=== PATIENT | male | born 1955 | race Caucasian/White ===

== ENCOUNTER → 2018-12-24 | Outpatient (CLI) | payer BC ==
[~2018-12-24] VITALS: Ht 198.1 cm; Wt 117.9 kg
[~2018-12-24] MED LIST: ACYCLOVIR 400400 MG PO; CHLORTHALIDONE25 MG PO; CRESTOR40 MG PO; GLUCOPHAGE XR500 MG PO; JARDIANCE10 MG PO; LEVEMIR SUBQ; LISINOPRIL5 MG PO; NOVOLOG100 UNIT/1 SUBQ; RYTHMOL SR225 MG PO; TOPROL XL25 MG PO; VIAGRA100 MG PO; XARELTO20 MG PO
[2018-12-24 07:43] VITALS: BP 130/86
--- NOTE | 2018-12-24 09:06 | TEE ---
[facility] [address] [place] [address] TRANSESOPHAGEAL ECHOCARDIOGRAM Name: TRACY GREGORY Room #: [facility]#: [id number] Admission: 12/24/18 Attend Phys: Seferino Mantilla, Discharge: Date of : 55 Date of Service: 12/24/18905 Report #: [id number] THIS REPORT FOR: //name// APPROVED REPORT Study performed: 12/24/2018 07:57:59 EXAM: Transesophageal Echocardiogram/Doppler with Cardioversion Patient Location: Out-Patient Status: routine BSA: 2.52 HR: 106 bpm BP: 124/83 mmHg Rhythm: Atrial Fibrillation Other Information Study Quality: Adequate Indications Atrial Fibrillation Cardioversion Procedure After obtaining informed consent, patient underwent transesophageal echo in the [employer]. Type of Sedation : Conscious Sedation Sedation was administered by Thais Oliva RN. Sedation was achieved intravenously with: Versed (4) Fentanyl (50) Transesophageal probe was inserted and advanced into esophagus without difficulty by Seferino Mantilla MD. Echo enhancement indication: R/O Septal defect. The RICHMOND was performed without complications. Synchronized Cardioversion attempted: Successful Synchronized Cardioversion acheived with 100, 200 Joules after 2 attempt(s). Rhythm following Synchronized Cardioversion: Normal Sinus Rhythm Throughout the procedure, the blood pressure, pulse oximetry, cardiac rhythm, and rate were monitored. The patient tolerated the procedure without adverse effects. Recovery from conscious sedation was uneventful and vital signs were stable. Left Ventricle [facility] [address] [place] [place] [address] TRANSESOPHAGEAL ECHOCARDIOGRAM Name: TRACY GREGORY Room #: [facility]#: [id number] Admission: 12/24/18 Attend Phys: Seferino Mantilla, Discharge: Date of : 55 Date of Service: 12/24/18 0906 Report #: [id number] The left ventricle is normal size. There is normal LV segmental wall motion. There is normal left ventricular wall thickness. Left ventricular systolic function is normal. LVEF is 55%. Right Ventricle The right ventricle is normal size. The right ventricular systolic function is normal. Atria Left atrium is mildly dilated. No thrombus is visualized in the left atrium or appendage. No shunting noted by contrast bubble injection. Right atrium is mildly dilated. Aortic Valve The aortic valve is normal in structure. No aortic regurgitation is present. There is no aortic valvular stenosis. Mitral Valve The mitral valve is normal in structure. Trace mitral regurgitation. Tricuspid Valve The tricuspid valve is normal in structure. There is no tricuspid valve regurgitation noted. Pulmonic Valve The pulmonary valve is normal in structure. There is no pulmonic valvular regurgitation. Great Vessels The aortic root is normal in size. The ascending aorta is normal in size. IVC is normal in size and collapses >50% with inspiration. Pericardium There is no pericardial effusion. <Conclusion> Left ventricular systolic function is normal. There is normal LV segmental wall motion. LVEF is 55%. Both atria are mildly dilated. No shunting by contrast bubble injection No thrombus is visualized in the left atrium or appendage. The aortic valve is normal in structure. No aortic regurgitation or stenosis [facility] [address] [place] [address] TRANSESOPHAGEAL ECHOCARDIOGRAM Name: TRACY GREGORY Room #: [facility]#: [id number] Admission: 12/24/18 Attend Phys: Seferino Mantilla, Discharge: Date of : 55 Date of Service: 12/24/18905 Report #: [id number] The mitral valve is normal in structure. Trace mitral regurgitation. The ascending aorta is normal in size. There is no pericardial effusion. Successful cardioversion of atrial flutter to sinus rhythm following 2 biphasic synchronous joules shocks <ELECTRONICALLY SIGNED> By: Seferino Mantilla MD, FACC 12/24/18905 5 5 Seferino Mantilla MD, FACC /INF
--- NOTE | 2018-12-24 09:50 | EKG ---
[place] [address] [facility] [place] [address] ELECTROCARDIOGRAM REPORT Name: TRACY GREGORY Room #: [facility]#: [id number] Admission: 12/24/18 Attend Phys: Seferino Mantilla MD, Discharge: Date of : 55 Report #: [id number] THIS REPORT FOR: //name// [facility] Test Date: 2018-12-24 Test Time: 08:43:29 Pat Name: TRACY GREGORY Department: Room: Gender: M [employer]: [facility] : 1955 Requested By: Seferino Mantilla Order Number: [id number] MD: Seferino Mantilla Measurements Intervals [place] Rate: 67 P: 48 OK: 172 QRS: -48 QRSD: 161 T: -9 QT: 405 QTc: 428 Interpretive Statements Sinus rhythm Atrial premature complex RBBB and LAFB No previous ECG available for comparison Electronically Signed On 12-24-2018 9:50:24 CDT by Seferino Mantilla [email or web address] <ELECTRONICALLY SIGNED> By: Seferino Mantilla MD, [facility] 12/24/18 0950 [id number] Seferino Mantilla MD, FACC /EPI
--- NOTE | 2018-12-24 11:42 | NUR ---
PT HOME WITH AND DAUGHTER POST RICHMOND/CV. SUCCESSFUL TO NSR. VSS. UP TO BATH ROOM WITH STEADY GAIT. PLEASANT AFFECT. NO C/O. SIPS WATER WITH NO C/O. ALERT AND ORIENTED X4. SL DC'D. VOICES SATISFACTION OF PROCEDURE.
== END | disposition home or self-care (01) ==
LOC: CATH 06:46
DX: E11.9 Type 2 diabetes mellitus without complications (principal); I34.0 Nonrheumatic mitral (valve) insufficiency; I48.91 Unspecified atrial fibrillation; I10 Essential (primary) hypertension; E78.5 Hyperlipidemia, unspecified; E66.09 Other obesity due to excess calories; Z79.899 Other long term (current) drug therapy; Z82.49 Family history of ischemic heart disease and other diseases of the circulatory system; Z79.4 Long term (current) use of insulin; Z98.890 Other specified postprocedural states; Z87.891 Personal history of nicotine dependence; Z79.01 Long term (current) use of anticoagulants; Z87.19 Personal history of other diseases of the digestive system

== ENCOUNTER → 2019-04-08 | Outpatient (CLI) | payer BC ==
[~2019-04-08] MED LIST changes: +EFFER-K 10 MEQ10 ME1 PO
[2019-04-08 07:59] LABS: HEMATOCRIT 49.7 % (42.0-52.0); HEMOGLOBIN 16.6 gm/dL (14.0-18.0); MCH 29.3 pg (26.0-34.0); MCHC 33.4 g/dL (28.0-37.0); MCV 87.7 fL (80.0-100.0); RBC 5.66 mil/uL (4.50-6.00); RDW 15.1 % (10.5-14.5)
[2019-04-08 08:14] LABS: APTT 32.5 Seconds (24.5-32.8); INR 1.1; PROTIME 11.7 Seconds (9.3-11.4)
[2019-04-08 08:15] LABS: ALBUMIN 4.2 g/dL (3.4-5.0); CALCIUM 10.5 mg/dL (8.5-10.1); POTASSIUM 4.2 mmol/L (3.5-5.1); TOTAL BILIRUBIN 0.5 mg/dL (<0.1-1.0); TOTAL PROTEIN 7.2 g/dL (6.4-8.2)
== END ==
LOC: CAT 07:34
PROVIDERS: Internal Medicine Cardiovascular Disease
DX: Z01.818 Encounter for other preprocedural examination (principal); I48.91 Unspecified atrial fibrillation; K44.9 Diaphragmatic hernia without obstruction or gangrene; E04.2 Nontoxic multinodular goiter; M47.814 Spondylosis without myelopathy or radiculopathy, thoracic region; I25.10 Atherosclerotic heart disease of native coronary artery without angina pectoris

== ENCOUNTER 2019-04-11 06:36 | Observation (INO) | payer BC ==
[~2019-04-11] VITALS: Ht 195.6 cm; Wt 115.7 kg
--- NOTE | ~2019-04-11 | P ---
[facility] [place] [address] PROCEDURE REPORT Name: COLTTRACY Carlos Room #: 219-P [facility].#: [id number] Admission: 04/11/19 Attend Phys: Sammy Delgado MD Discharge: Date of : 55 Report #: [id number] THIS REPORT FOR: //name// CC: SHEBA Delgado ATRIAL FIBRILLATION ABLATION PREOPERATIVE DIAGNOSIS: Atrial fibrillation. POSTOPERATIVE DIAGNOSIS: Atrial fibrillation. PROCEDURES PERFORMED: 1. Atrial fibrillation ablation, CPT code 10845. 2. 3D mapping, CPT code 78157. 3. Intracardiac echo, CPT code 05958. 4. Second pathway ablation, CPT code 88936. HISTORY: The patient is a 63-year-old with a history of hypertension, diabetes, and recurrent atrial fibrillation and atrial flutter, here for ablation. ANESTHESIA: The patient underwent general anesthesia with no anesthesia related complications. DESCRIPTION OF PROCEDURE: The patient underwent informed consent. We discussed the details of the procedure including the risks, which include, but not limited to bleeding, vascular damage, cardiac perforation as well as stroke and NH. He understood these risks and is willing to proceed. The patient was brought to the EP laboratory in a fasting and sedated state and prepped and draped in a sterile fashion. Next, I obtained access to the right and left femoral veins placing two 8-Malay short sheaths in the right femoral vein and a 9 and 7-Malay short sheath in the left femoral vein. Eventually, I did exchange with an 8-Malay short sheath in the right femoral vein for another 9-Malay short sheath. Under fluoroscopy, I placed a Decapolar catheter into the coronary sinus. Of note, the patient had very rotated heart. I was able to get into the coronary sinus and fluoroscopically, it appeared that the CS was quite anterior, but this was likely due to his very rotated heart. I had difficulties keeping the Decapolar catheter in the CS, but when I did the atrial flutter ablation, I was able to finally get into this vessel using intracardiac ultrasound to guide me. I did not place the ice catheter into the right atrium. His images were unusual. His aorta appeared to be more superior than his atria and therefore, my usual pictures appeared to be a quite rotated. The patient was systemically heparinized and a transseptal was performed. He did have a thick interatrial septum. I attempted to advance my SL1 sheath and I could not into the left atrium. Therefore, I exchanged for the cryo sheath and this would not advance either. My transseptal was quite anterior and it was hard to get my [facility] [address] [place] [address] PROCEDURE REPORT Name: TRACY GREGORY Room #: 219-P [facility] M.R.#: [id number] Admission: 04/11/19 Attend Phys: Sammy Delgado MD Discharge: Date of : 55 Report #: [id number] wire to sit into the left superior pulmonary vein. I think it was likely wrapped around in the left atrium and sometimes in the left atrial appendage. This made advancing the cryo sheath somewhat difficult. Therefore, I did perform balloon septoplasty of the interatrial septum and I was able to easily advance the cryo sheath into the left atrium. Once in the left atrium, the ablation was straightforward. The left superior pulmonary vein underwent a 220 second freeze followed by a 3-minute freeze. The vein isolated within 30 seconds of the first freeze. I then turned my attention to the left inferior pulmonary vein. I performed two 4-minute freezes and the vein isolated during the first freeze. There was an initial electrogram that isolated within 80 seconds and there was another electrogram that isolated within 135 seconds. After these 2 freezes, this vein appeared isolated. I then turned my attention to the right superior pulmonary vein. I performed a 165 second freeze followed by a 4-minute freeze. It came off early as attempts were getting cold during the first freeze. The vein did isolate during the first freeze at 100 seconds. I then turned my attention to the right inferior pulmonary vein. I performed two 4-minute freezes and this vein did isolate during the first freeze at 150 seconds. I then decided to perform a voltage map of the left atrium using a Lasso catheter, which I had done prior to initial ablation. This showed that all veins were isolated, but there was an area of reconnection in the left inferior pulmonary vein at the inferior aspect of this vessel. Therefore, I performed an inferior freeze of 4 minutes' duration, which did not result in isolation and then I performed a second freeze of 4 minutes' duration where I pulled down and clocked the sheath and this resulted in isolation within 11 seconds. Therefore, repeat voltage map was created and we had created a wide circumferential ablation of all the pulmonary veins. Of note, while I was attempting to enter the right superior pulmonary vein. The patient did have atrial flutter that appeared to be cavotricuspid isthmus dependent flutter in nature. He does have documented atrial flutter in the past. As such, we decided to proceed with atrial flutter ablation. ATRIAL FLUTTER ABLATION: After pulling my cryo sheath into the right atrium, I removed the cryoballoon and placed the ice catheter into the cryo sheath and I do align using CartoSound of the cavotricuspid isthmus. Preablation pacing was performed and the transisthmus conduction time was 90 either pacing medial or lateral to the line. Next, ablation was performed using a SmartTouch ThermoCool ablation catheter via a ramp sheath. The patient did have a long isthmus. Extensive ablation was performed and post-ablation, the transisthmus conduction time was 170 milliseconds, which was consistent with bidirectional block. As such, the procedure was concluded. Post-ablation, the patient remained in sinus rhythm. Using intracardiac ultrasound, I verified there was no pericardial effusion. The patient received systemic protamine and once ACT was within acceptable range, catheters and sheaths were pulled and hemostasis was obtained. The patient awoke neurologically and hemodynamically intact. No complications and no significant bleeding. [facility] [address] [place] [address] PROCEDURE REPORT Name: COLTTRACY Carlos Room #: 219-P [facility].#: [id number] Admission: 04/11/19 Attend Phys: Sammy Delgado MD Discharge: Date of : 55 Report #: [id number] CONCLUSIONS: 1. Successful AFib ablation with isolation of the pulmonary veins. 2. Successful atrial flutter ablation with bidirectional block. By: 1406 0035 Sammy Delgado MD /nt
[~2019-04-11 06:36] MED LIST changes: -EFFER-K 10 MEQ10 ME1 PO
[2019-04-11 06:53] VITALS: BP 139/66
[2019-04-11 08:08] LABS: ABSOLUTE NEUTROPHILS 3.7 thou/uL (1.4-8.2); BASOPHILS 1.2 % (0.0-2.0); EOSINOPHILS 1.9 % (0.0-3.0); HEMATOCRIT 46.6 % (42.0-52.0); HEMOGLOBIN 15.6 gm/dL (14.0-18.0); LYMPHOCYTES 18.8 % (24.0-44.0); MCH 29.1 pg (26.0-34.0); MCHC 33.4 g/dL (28.0-37.0); MCV 87.1 fL (80.0-100.0); MONOCYTES 8.8 % (1.0-8.0); PLATELET COUNT 153 thou/uL (150-400); POLYS 69.3 % (36.0-66.0); RBC 5.35 mil/uL (4.50-6.00); RDW 14.4 % (10.5-14.5); WBC 5.3 thou/uL (4.0-11.0)
[2019-04-11 08:17] LABS: CALCIUM 9.8 mg/dL (8.5-10.1); POTASSIUM 3.8 mmol/L (3.5-5.1)
[2019-04-11 08:22] LABS: APTT 28.2 Seconds (24.5-32.8); PROTIME 10.7 Seconds (9.3-11.4)
[2019-04-11 13:45] VITALS: BP 145/62
--- NOTE | 2019-04-11 14:29 | NUR ---
PT ARRIVED TO UNIT AT 1335 FROM LOOM STOP CHECKER. PT HAD AFIB ABLATION. PT IS CURRENTLY IN SR RATE 82. PT HAS L AND R GROIN SITES. BOTH ARE COVERED WITH GAUZE AND TRANSPARENT DRESSING. BOTH SITES ARE SOFT TO TOUCH, NO HEMATOMA PRESENT AT THIS TIME. PT INSTRUCTED THAT HE IS ON BED FROM UNTIL 193. PT IS C/O BACK PAIN. PT GIVEN PO PAIN MEDICATION. AND DAUGHTER AT BEDSIDE.
[2019-04-11 16:00] VITALS: BP 142/68
[2019-04-11] MEDS ORDERED: EFFER-K 10 MEQ10 ME1 PO (17:52)
[2019-04-11 21:12] VITALS: BP 137/56
--- NOTE | 2019-04-12 04:53 | NUR ---
ASSESSMENT: PT REMAIN ALERT AND ORIENT TIMES FOUR. UP AD SHANELLE IN THE ROOM. BARNES DC'D, PT HAS URINATED SINCE. CHERRIE GROIN SITES C/D/I. VSS, SR-ST WITH OCCASIONAL FIRST DEGREE. PT ANTICIPATING BEING DC'D TODAY. GOOD PROGRESS TOWARDS DC GOALS, WILL CONTINUE TO MONITOR.
[2019-04-12 06:35] VITALS: BP 141/55
[2019-04-12 07:45] VITALS: BP 141/58
[2019-04-12 09:48] VITALS: BP 141/58
--- NOTE | 2019-04-12 11:22 | NUR ---
pt assessed, alert and oriented x 4, verbalizes desire to go home. reviewed all meds and DC instructions, pt verbalizes information about ablation and why it was done. dr and metal hardener in to see pt around 9am. pt verbalized understanding of all meds and dc instructions. IVx2 and tele removed. pt was pushed to ER entrance via wheelchair where he got into the car with his . he took all belongings with him.
== END 2019-04-12 11:15 | disposition home or self-care (01) ==
LOC: CATH 06:36 → 2N 13:48 → CATH 14:18 → 2N 04-12 11:15
PROVIDERS: ADMIT Internal Medicine Cardiovascular Disease
DX: I48.0 Paroxysmal atrial fibrillation (principal); I10 Essential (primary) hypertension; E11.9 Type 2 diabetes mellitus without complications; D68.59 Other primary thrombophilia; I48.92 Unspecified atrial flutter; E78.5 Hyperlipidemia, unspecified; Z23 Encounter for immunization
CPT/HCPCS: 62110; 62900; 65020; 65040; 70005

== ENCOUNTER → 2020-11-15 | Outpatient (CLI) | payer OTHER ==
[~2020-11-15] MED LIST changes: +EFFER-K 10 MEQ10 ME1 PO
== END ==
LOC: SJCVC 13:58
PROVIDERS: ATTEND Internal Medicine
DX: R94.31 Abnormal electrocardiogram [ECG] [EKG] (principal); I45.2 Bifascicular block; I48.0 Paroxysmal atrial fibrillation; I45.10 Unspecified right bundle-branch block; I10 Essential (primary) hypertension; E78.5 Hyperlipidemia, unspecified; E11.9 Type 2 diabetes mellitus without complications; N40.0 Benign prostatic hyperplasia without lower urinary tract symptoms; B00.2 Herpesviral gingivostomatitis and pharyngotonsillitis; E66.3 Overweight; I25.2 Old myocardial infarction; Z79.899 Other long term (current) drug therapy; Z87.891 Personal history of nicotine dependence; Z72.89 Other problems related to lifestyle

== ENCOUNTER → 2020-11-17 | Outpatient (CLI) | payer OTHER | LOC: SJCVCIMAG 09:09 | PROVIDERS: ATTEND Internal Medicine Cardiovascular Disease | DX: I08.3 Combined rheumatic disorders of mitral, aortic and tricuspid valves (principal); I11.9 Hypertensive heart disease without heart failure; E11.9 Type 2 diabetes mellitus without complications; R94.31 Abnormal electrocardiogram [ECG] [EKG]; I48.0 Paroxysmal atrial fibrillation; I45.10 Unspecified right bundle-branch block; E78.5 Hyperlipidemia, unspecified; R42 Dizziness and giddiness; R06.00 Dyspnea, unspecified; Z79.899 Other long term (current) drug therapy ==

== ENCOUNTER → 2020-11-25 | Outpatient (CLI) | payer OTHER ==
[~2020-11-25] VITALS: Ht 195.6 cm; Wt 110.0 kg
[2020-11-25 07:52] VITALS: BP 108/72
[2020-11-25 07:56] LABS: HEMATOCRIT 52.6 % (42.0-52.0); HEMOGLOBIN 17.7 gm/dL (14.0-18.0); MCH 29.9 pg (26.0-34.0); MCHC 33.7 g/dL (28.0-37.0); MCV 88.8 fL (80.0-100.0); RBC 5.92 mil/uL (4.50-6.00); RDW 14.9 % (10.5-14.5)
[2020-11-25 08:06] LABS: POTASSIUM 3.9 mmol/L (3.5-5.1)
[2020-11-25 08:11] LABS: INR 1.14; PROTIME 12.4 Seconds (10.5-12.1)
--- NOTE | 2020-11-26 13:27 | P ---
[facility] [place] [address] PROCEDURE REPORT Name: GREGORYTRACY Melgar Room #: [facility] [id number] Admission: 11/25/20 Attend Phys: Sammy Delgado MD Discharge: Date of : 55 Report #: [id number] THIS REPORT FOR: cc: SHEBA CALDERA APRN, ANNA APRN Couchonnal, Luis F. MD ~ DOC #: [id number] Sammy Delgado MD PROCEDURE: Cardioversion. PREOPERATIVE DIAGNOSIS: Atrial fibrillation. POSTOPERATIVE DIAGNOSIS: Atrial fibrillation. DESCRIPTION OF PROCEDURE: The patient underwent informed consent. He was prepped in a standard fashion. Patches placed in the AP position. He was sedated by anesthesiology service and then underwent a 200 joule synchronized cardioversion with buddhism of sinus rhythm. There were no procedure related complications. CONCLUSION: Successful DC cardioversion with buddhism of sinus rhythm. Sammy Delgado MD LFC/JT <ELECTRONICALLY SIGNED> By: Sammy Delgado MD 11/26/20 1327 1126 2216 Sammy Delgado MD /nt
== END | disposition home or self-care (01) ==
LOC: CATH 06:31
PROVIDERS: ATTEND Internal Medicine Cardiovascular Disease
DX: I48.91 Unspecified atrial fibrillation (principal); I10 Essential (primary) hypertension; E11.9 Type 2 diabetes mellitus without complications; E78.5 Hyperlipidemia, unspecified; E66.9 Obesity, unspecified; Z98.890 Other specified postprocedural states; Z79.899 Other long term (current) drug therapy; Z79.01 Long term (current) use of anticoagulants; Z79.4 Long term (current) use of insulin; Z87.442 Personal history of urinary calculi; Z87.891 Personal history of nicotine dependence
CPT/HCPCS: 62110; 62900

== ENCOUNTER → 2020-12-30 | Outpatient (CLI) | payer OTHER | LOC: SJCVC 14:29 | PROVIDERS: ATTEND Internal Medicine Cardiovascular Disease | DX: R94.31 Abnormal electrocardiogram [ECG] [EKG] (principal); I45.10 Unspecified right bundle-branch block; I48.0 Paroxysmal atrial fibrillation; E11.9 Type 2 diabetes mellitus without complications; I10 Essential (primary) hypertension; E66.9 Obesity, unspecified; E78.5 Hyperlipidemia, unspecified; Z98.890 Other specified postprocedural states; Z79.4 Long term (current) use of insulin; Z79.899 Other long term (current) drug therapy; Z87.891 Personal history of nicotine dependence; Z82.49 Family history of ischemic heart disease and other diseases of the circulatory system ==

== ENCOUNTER → 2021-05-25 | Outpatient (CLI) | payer OTHER | LOC: SJCVC 14:03 | PROVIDERS: ATTEND Internal Medicine Cardiovascular Disease | DX: R94.31 Abnormal electrocardiogram [ECG] [EKG] (principal); I45.10 Unspecified right bundle-branch block; I48.0 Paroxysmal atrial fibrillation; I48.92 Unspecified atrial flutter; I47.1 Supraventricular tachycardia; E11.9 Type 2 diabetes mellitus without complications; E78.5 Hyperlipidemia, unspecified; I10 Essential (primary) hypertension; Z79.4 Long term (current) use of insulin; Z79.899 Other long term (current) drug therapy; Z87.891 Personal history of nicotine dependence; Z72.89 Other problems related to lifestyle; Z82.49 Family history of ischemic heart disease and other diseases of the circulatory system ==

== ENCOUNTER 2021-06-20 06:30 | Observation (INO) | payer OTHER ==
[~2021-06-20] VITALS: Ht 195.6 cm; Wt 110.3 kg
--- NOTE | ~2021-06-20 | P ---
[facility] [place] [address] PROCEDURE REPORT Name: TRACY GREGORY Room #: 209-P [facility] Julian Cochran#: [id number] Admission: 06/20/21 Attend Phys: Sammy Delgado MD Discharge: 06/21/21 Date of : 55 Report #: [id number] THIS REPORT FOR: cc: SHEBA CALDERA APRN, SHEBA Delgado,Sammy Crook MD ~ DATE OF SERVICE: 06/20/2021 PREOPERATIVE DIAGNOSIS: Atrial fibrillation. POSTOPERATIVE DIAGNOSES: 1. Atrial fibrillation. 2. Typical AV karli reentrant tachycardia. PROCEDURES PERFORMED: 1. Atrial fibrillation ablation, CPT code 53254. 2. Program stimulation pacing after IV drug infusion, CPT code 62478. 3. Focal ablation, CPT code 60243. 4. Second pathway ablation, CPT code 31703. DESCRIPTION OF PROCEDURE: The patient was brought to the EP lab in a fasting and sedated state and prepped and draped in a standard fashion. In the right femoral vein, I placed an 8, 9 and 7-Swedish short sheath using the modified Seldinger technique. Later on in the case, I placed a 6-Swedish short sheath as well. At baseline, the patient was in atrial fibrillation. I placed an ICE catheter in the right atrium for intracardiac ultrasound imaging. I placed a Decapolar catheter in the coronary sinus for left atrial pacing and recording. The patient was systemically heparinized and a transseptal was performed using an Agilis sheath and a Deville needle. This was straightforward. I then placed a PentaRay into the left atrium and created a 3D geometry and voltage map of the left atrium. This showed that all veins were isolated except for the right inferior pulmonary vein. I therefore took a [employer] Suazo SmartTouch ThermoCool ablation catheter and performed re-isolation of the right inferior pulmonary vein. Given his extensive atrial fibrosis, I decided to perform posterior wall isolation. Ablation was performed along the roof and inferior aspects of the left atrium until the posterior wall was isolated. A repeat voltage map was then created showing that all veins were isolated and the posterior wall was also isolated. The patient then underwent a 200 joule synchronized cardioversion, which resulted in sinus rhythm, but then almost immediately the patient went into AV karli reentrant tachycardia. 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 Therefore, we decided to perform an EP study to ensure diagnosis of AVNRT. I placed a HIS catheter and RV catheter into the heart and on EP study, I was able [facility] [address] [place] [address] PROCEDURE REPORT Name: TRACY GREGORY Room #: 209-P [facility] Julian M.RaDnia#: [id number] Admission: 06/20/21 Attend Phys: Sammy Delgado MD Discharge: 06/21/21 Date of : 55 Report #: [id number] to induce SVT with a tachycardia cycle length of 400 milliseconds with a septal VA time of 40 milliseconds and I attempted to entrain this several times, but this would terminate the tachycardia. Therefore, I initiated isoproterenol at 1 mcg per minute and again I attempted to entrain this, but this would terminate the tachycardia. In fact, now on isoproterenol, the patient would into SVT and would consistently terminate with an atrial signal, which was diagnostic of typical AV karli reentrant tachycardia. As such the patient was therefore prepped for ablation of AVNRT. I ablated using the [employer] ThermoCool ablation catheter via the Agilis sheath at 25 adames and performed several ablation lesions and had not junctional response. Post-ablation, we continued with our EP study on isoproterenol and AVNRT was no longer inducible. It is possible that this AVNRT may have been a possible trigger for his recurrent atrial fibrillation. Post-ablation, there was no evidence of pericardial effusion. The patient received systemic protamine and once ACT was within acceptable range, catheters and sheaths were pulled and hemostasis was obtained. There were no procedure related complications. CONCLUSION: 1. Successful AFib ablation with re-isolation of the right inferior pulmonary vein. 2. Successful posterior wall isolation. 3. Successful ablation of typical AV karli reentrant tachycardia. 4. EP study with no other inducible arrhythmias on or off isoproterenol. By: 1331 35 Sammy Delgado MD /nt
[2021-06-20 07:45] VITALS: BP 102/68
[2021-06-20 07:55] LABS: ABSOLUTE NEUTROPHILS 6.1 thou/uL (1.4-8.2); EOSINOPHILS 2.3 % (0.0-3.0); HEMATOCRIT 51.4 % (42.0-52.0); HEMOGLOBIN 17.4 gm/dL (14.0-18.0); LYMPHOCYTES 14.4 % (24.0-44.0); MCH 29.2 pg (26.0-34.0); MCHC 33.9 g/dL (28.0-37.0); MCV 86.3 fL (80.0-100.0); MONOCYTES 8.8 % (1.0-8.0); PLATELET COUNT 142 thou/uL (150-400); POLYS 73.5 % (36.0-66.0); RBC 5.96 mil/uL (4.50-6.00); RDW 14.5 % (10.5-14.5); WBC 8.3 thou/uL (4.0-11.0)
[2021-06-20 08:04] LABS: CALCIUM 9.2 mg/dL (8.5-10.1); POTASSIUM 3.7 mmol/L (3.5-5.1)
[2021-06-20 08:09] LABS: ALBUMIN 3.7 g/dL (3.4-5.0); TOTAL BILIRUBIN 0.6 mg/dL (0.2-1.0)
[2021-06-20 08:22] LABS: APTT 27.8 Seconds (24.5-32.8); PROTIME 10.9 Seconds (10.5-12.1)
--- NOTE | 2021-06-20 15:25 | NUR ---
PATIENT ARRIVED ON FLOOR AT APPROXIMATELY 1330 AFTER HAVING AN AFIB ABLATION. PATIENT HAS TWO GROIN SITES BOTH WITH STOPCOCKS. STOPCOCKS REMOVED AT 1400, PATIENT REMAINS ON BEDREST UNTIL 1600. BOTH GROIN SITES C/D/I. PATIENT ONLY COMPLAINT IS BACK PAIN WHICH WAS ADDRESSED WITH REPOSITIONING AND PAIN MEDICATION.
[2021-06-20 16:00] VITALS: BP 106/65
--- NOTE | 2021-06-20 17:26 | NUR ---
PATIENT STATED UPON ADMISSION THAT HE DID NOT BRING ANY MEDICATIONS TO THE HOSPITAL. DURING ROUNDING PATIENT STATED HE TOOK HIS OWN HOME INSULIN DOSE OF 15 UNITS. [facility] SPOUSE TO TAKE HOME SHE STATED SHE WOULD. PHYSICIAN NOTIFIED, NO NEW ORDERS. WILL CONTINUE TO MONITOR.
[2021-06-20 20:01] VITALS: BP 117/60
--- NOTE | 2021-06-21 03:38 | NUR ---
PATIENT HAD A GOOD NIGHT. HE WAS UPSET REGARDING SOME OF HIS MEDICATIONS BUT WAS ABLE TO CALM DOWN WITH NO REDIRECTION. PATIENT GROIN SITES ARE DRY AND INTACT. NOTED SOME DRIED BLOOD TO R GROIN SITE. NO S/S OF HEMATOMA OR BRUISING NOTED. VSS. COMPLIANT WITH TREATMENT. WILL CONTINUE TO MONITOR FOR CHANGES IN PATEINT STATUS.
[2021-06-21 04:15] VITALS: BP 106/54
[2021-06-21 07:50] VITALS: BP 113/79
--- NOTE | 2021-06-21 09:21 | NUR ---
Assumed care of pt this AM. Pt is A&O x4, on RA, SR w/ BBB on the monitor. Pt denies any chest pain. Plan to discharge home today. Pt will come around 0930. Discharge education provided to pt. IV & tele d/c'ed. Forms signed & posted in chart. Education provided.
[2021-06-21 09:22] VITALS: BP 113/79
--- NOTE | 2021-06-21 09:33 | NUR ---
CM MET WITH PT THIS DAY. PT REPORTS NO NEEDS ONCE MEDICALLY STABLE TO DC. PT REPORTS HE IS DISCHARGED AND LEAVING SHORTLY. NO CM INTERVENTIONS AT THIS TIME.
[2021-06-21 09:54] VITALS: BP 113/79
== END 2021-06-21 10:01 | disposition home or self-care (01) ==
LOC: CATH 06:30 → 2N 13:45 → CATH 13:46 → 2N 06-21 10:01
PROVIDERS: ADMIT Internal Medicine Cardiovascular Disease; ATTEND Internal Medicine Cardiovascular Disease
DX: I48.91 Unspecified atrial fibrillation (principal); I47.1 Supraventricular tachycardia; Z20.822 Contact with and (suspected) exposure to COVID-19; I10 Essential (primary) hypertension; E11.9 Type 2 diabetes mellitus without complications; E66.9 Obesity, unspecified; Z68.28 Body mass index [BMI] 28.0-28.9, adult; Z79.84 Long term (current) use of oral hypoglycemic drugs; Z79.899 Other long term (current) drug therapy
CPT/HCPCS: 10797; 62110; 62900; 65020; 65040; 70005